=== PATIENT | male | born 1970 | race Two or more races ===

== ENCOUNTER 2025-02-13 23:33 | Emergency (ER) | payer OTHER ==
[~2025-02-13] VITALS: Ht 162.6 cm; Wt 58.1 kg
[2025-02-14] MEDS ORDERED: 0.9 % SODIUM CHLORIDE 1,000 ML IV STA (01:03)
[2025-02-14] MEDS ORDERED: KETOROLAC TROMETHAMINE 30 MG VIAL IV STA (01:04)
[2025-02-14] MEDS ORDERED: MORPHINE SULFATE 4 MG/ML VIAL IV STA (01:04)
[2025-02-14] MEDS ORDERED: HYOSCYAMINE SULFATE 0.125 MG TAB.SUBL SL ONE (01:15)
[2025-02-14] MEDS ORDERED: KETOROLAC TROMETHAMINE 30 MG VIAL ONE (01:15)
[2025-02-14] MEDS ORDERED: HYOSCYAMINE SULFATE 0.125 MG TAB.SUBL ONE (01:15)
[2025-02-14 02:04] LABS: BASO % 0.9 % (0.1-1.2); EOS # 0.01 (0.04-0.54); EOS % 0.2 % (0.7-7.0); HEMATOCRIT 43.3 % (40.1-51.0); HEMOGLOBIN 15.2 g/dL (13.7-17.5); LYMPH # 0.77 (1.18-3.74); LYMPH % 14.3 % (19.3-53.1); MEAN CORPUSCULAR HEMOGLOBIN 31.5 pg (25.6-32.2); MONO # 0.32 (0.24-0.82); MONO % 5.9 % (4.7-12.5); NEUT # 4.22 (1.56-6.13); NEUT % 78.1 % (34.0-71.1); PLATELET COUNT 333 K/uL (163-369); RED BLOOD COUNT 4.82 M/uL (4.63-6.08); RED CELL DISTRIBUTION WIDTH 12.3 % (11.6-14.4)
[2025-02-14 02:27] LABS: INR 1.14; PARTIAL THROMBOPLASTIN TIME 25.7 SECONDS (22.0-34.0); PROTHROMBIN TIME 12.3 SECONDS (9.0-11.5)
[2025-02-14 02:31] LABS: ALBUMIN 4.1 gm/dL (3.4-5.0); BILIRUBIN TOTAL 0.45 mg/dL (0.3-1.2); CALCIUM 9.5 mg/dL (8.5-10.1); CREATININE SERUM 1.07 mg/dL (0.70-1.30); GFR 72.57; GLOBULINA 3.7 G/DL (2.4-3.5); POTASSIUM 4.3 mEq/L (3.5-5.1); TOTAL PROTEIN 7.8 gm/dL (6.4-8.2)
== END 2025-02-14 05:24 | disposition home or self-care (01) ==
LOC: ER 23:38
DX: R10.12 Left upper quadrant pain (principal); K57.90 Diverticulosis of intestine, part unspecified, without perforation or abscess without bleeding; N20.0 Calculus of kidney